=== PATIENT | female | born 1965 | race African-American/Black ===

== ENCOUNTER 2021-07-26 15:22 | Emergency (ER) | payer OTHER, SELFPAY ==
[2021-07-26 15:25] VITALS: BP 140/89; PULSE 110; RESP 18; TEMP 36.8; O2SAT 98
--- NOTE | 2021-07-26 16:18 | ED.GENADULT ---
HPI - General Adult General Chief complaint: Extremity Injury, Lower <Amy Arroyo PA-C - Last Filed: 07/26/21 18:23> Stated complaint: rt leg sore with bruising <Amy Arroyo PA-C - Last Filed: 07/26/21 18:23> Time Seen by Provider: 07/26/21 16:06 <PATRICIA Kerns Last Filed: 07/26/21 18:23> History of Present Illness HPI narrative: Patient is a 56-year-old female with a history of type 2 diabetes, hypertension who presents to the emergency department with 3 days of right lower extremity redness, swelling, and pain. Patient denies any acute injury to her right foot or acute tears in the skin, however she had some old chronic wounds that are in various stages of healing. Today she states that she began to feel feverish with some body aches which caused her for to present to the emergency department. He has not taken any medication for pain. She denies any recent long trips or travel, any hemoptysis, calf soreness, nausea, vomiting, headaches. <PATRICIA Kerns Last Filed: 07/26/21 18:23> Related Data Home medications: Home Medications Medication Instructions Recorded Confirmed amlodipine 07/26/21 aspirin 07/26/21 atorvastatin 07/26/21 hydrochlorothiazide 07/26/21 metformin mg 07/26/21 <PATRICIA Kerns Last Filed: 07/26/21 18:23> Allergies/adverse reactions: Allergies Allergy/AdvReac Type Severity Reaction Status Date / Time No Known Allergies Allergy Unverified 07/26/21 15:27 <PATRICIA Kerns Last Filed: 07/26/21 18:23> Review of Systems Review of Systems: Gen.: Denies fevers or chills Eyes: Denies eye pain or visual change ENT: Denies congestion Respiratory: Denies shortness of breath or cough CV: Denies chest pain or palpitations GI: Denies abdominal pain nausea, emesis or diarrhea denies burning, urgency, frequency or hematuria Musculoskeletal: Reports redness and pain to right lower extremity. Neuro: Denies numbness, tingling, weakness or focal weakness Skin: Reports redness to right lower extremity. Except as documented, all other systems reviewed and negative <Amy Arroyo PA-C - Last Filed: 07/26/21 18:23> All systems reviewed & are unremarkable except as noted in HPI and below <Amy Arroyo PA-C - Last Filed: 07/26/21 18:23> Exam Narrative: APPEARANCE: Well appearing, no pain in distress, well-nourished. Head normocephalic and atraumatic. EYES: PERRLA/EOMI, conjunctivae clear NOSE: No nasal drainage EARS: External ear normal in appearance THROAT: Oropharynx is clear. Mucous membranes are moist. NECK: Supple. No adenopathy, no masses. RESPIRATORY: Airway patent, respirations nonlabored. Clear to auscultation bilaterally, no rales, rhonchi, wheezing. CARDIOVASCULAR: Regular rate and rhythm without murmurs, rubs, or gallops. ABDOMINAL: Normoactive bowel sounds. Soft, nontender, nondistended. No rebound tenderness or guarding. MUSCULOSKELETAL: Patient has patchy erythema to right lower extremity underlying old wounds in various stages of healing. She has no calf tenderness or palpable cords. Homans' sign is negative. NEURO: Normal speech. No focal neurologic deficits. SKIN:: Skin is warm and dry. No rashes. PSYCHIATRIC: Normal affect/mood.. <Amy Arroyo PA-C - Last Filed: 07/26/21 18:23> Course MOLD STRIPPER/PA Physician Supervision Patient seen and evaluated by me. Patient presents emergency room secondary to redness and tenderness to the right lower extremity. Is just from the knee down towards the ankle region. She is a type II diabetic and her diabetes is well controlled with blood sugars running in the 120s normally. She denies any trauma or injuries. She got no history of DVTs. She has no calf tenderness. Presentation and physical examination is consistent with cellulitis. Patient will placed on a course of antibiotics. Told her to follow the
== END 2021-07-26 16:36 | disposition home or self-care (01) ==
LOC: ANHED 16:29
PROVIDERS: Emergency Provider Emergency Medicine
DX: L03.115 Cellulitis of right lower limb (principal)
CPT/HCPCS: 99283

== ENCOUNTER 2024-10-31 15:25 | Emergency (ER) | payer SELFPAY ==
--- NOTE | ~2024-10-31 | XR_ITS ---
XR knee LT min 4V Ordering provider: Michelle Carrington PA-C History: . knee pain . Comparison: None. FINDINGS: BONES: No acute fracture or dislocation. Ossification of the insertion of the medial collateral ligam ent in the femur. JOINT SPACES: Normal. Marginal osteophytes are seen in the patella. SOFT TISSUES: Normal. IMPRESSION: No acute osseous abnormality left knee. Reviewed, dictated and finalized at location A.
--- NOTE | ~2024-10-31 | US_ITS ---
EXAMINATION: US venous doppler [facility] DATE: 10/31/2024 17:18 INDICATION: Left lower limb pain and swelling TECHNIQUE: Grayscale ultrasound images without and with compression and Doppler ultrasound images of the left lower extremity veins were obtained. COMPARISON: None. FINDINGS: The visualized portions of left common femoral vein, profunda (deep) femoral vein, femoral vein, popl iteal vein, peroneal veins, posterior tibial veins, gastrocnemius vein, proximal to mid greater saphe nous vein outflow are patent. IMPRESSION: 1. No deep venous thrombosis in the left lower limb. Reviewed, dictated and finalized at location A.
[2024-10-31 15:26] VITALS: BP 142/68; PULSE 106; RESP 20; TEMP 36.6; O2SAT 91
--- OUTSIDE RECORDS SUMMARY | 2024-10-31 15:27 | XMS_ITS | Clinical Summary ---
Author Organization [facility] Address [address] [place] [address] Care Team Providers Care Packing Room Supervisor Name Role Phone Amanda Johns Gilda TRIANA-LANDSCAPING SPECIALIST Primary Care Provi angelique Source Comments [facility],non-owned Affiliates and Associated Physician Practices is amultiple site organization consisting of ambulatory clinics and hospital sitesin [place], [place], [place] and [place]. This disclosure is being madepursuant to the Care Everywhere program and may not contain all information available regarding this patient. Last updated 18.[facility] Allergies No known active allergies Medications * Be aware that medications may not be up to date on this document. Alwaysverify current medications with the patient. hydroCHLOROthiazi de (HYDRODIURIL) 25 MG tablet 1 7 Active amLODIPine (NORVASC) 10 MG tablet 3 7 Active naproxen (NAPROSYN) 500 MG tablet Take 500 mg by mouth 2 times daily 0 7 Active loratadine (CLARITIN) 10 MG tablet Take 10 mg by mouth 8 Active betamethasone dipropionate (DIPROSONE) 0.05 % ointmentIndicatio ns:Prurigo nodularis Apply to leg lesions twice daily. 30 days supply. 50 g 11 8 Active ammonium lactate (LAC-HYDRIN) 12 % lotionIndications :Lichen simplex chronicus,Prurigo nodularis Apply to thickened areas of feet/lower legs twice daily. 30 DS. 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 03/10/2017 Venous insufficiency (chronic) (peripheral) 08/23 Prurigo nodularis 09/07/2016 Family History Medical History Relation Name Comments Cancer Brother Status: d CVA Father Status: d Cancer Mother Status: d Asthma Neg Hx Cancer - Breast Neg Hx Cancer - Other Neg Hx Cancer - Skin, Melanoma Neg Hx Cancer - Skin, Non Melanoma Neg Hx Eczema Neg Hx Hemophilia Neg Hx Psoriasis Neg Hx Relation Name Status Comments Brother Father Mother Social History Tobacco Use Types Packs/Day Years Used Date Smoking Tobacco: Former Smokeless Tobacco: Never Alcohol Use Standard Drinks/Week Comments Yes 0 (1 standard drink = 0.6 oz pur e alcohol) every now and then Comments Unknown Sex and Gender Information Value Date Recorded Sex Assigned at Not on file Legal Sex Female 5:24 PM [employer] Gender Identity Not on file Sexual Orientation Not on file Plan of Treatment Health Maintenance Due Date Last Done Comments COLOGUARD (AGES 45-75) - COL ON CA SCREENING 1966 COLON MONITORING 1966 COLONOSCOPY - COLON CA SCREENING 1966 CT COLONOGRAPHY - COLON CA SCREENING 1966 Colorectal Cancer Screening 1966 FIT - COLON CA SCREENING 1966 FLEX SIG - COLON CA SCREENING 1966 LIPID TESTING 1966 MAMMOGRAM 1966 HIV SCREENING 1981 HEPATITIS C SCREENING 02/28/1984 DTAP/TDAP/TD VACCINES (1 - Tdap) 1985 HEPATITIS B VACCINE (1 of 3 - 19+ 3-dose series) 1985 PNEUMOCOCCAL VACCINE 50+ (1 of 1 - PCV) 2016 ZOSTER VACCINE (1 of 2) 2016 COVID-19 VACCINE ( - 2023-2 5 season) 2023 DEPRESSION SCREENING 04/25/2024 INFLUENZA VACCINE (Season Ended) 2024 HIB VACCINE Aged Out No longer eligi ble based on patient's age to complete this topic HPV VACCINE Aged Out No longer eligi ble based on patient's age to complete this topic MENINGOCOCCAL (Group B) VACC INE SHARED DECISION-MAKING Aged Out No longer eligibl e based on patient's age to complete this topic MENINGOCOCCAL GROUPS A/C/Y/W VACCINE Aged Out No longer eligible b ased on patient's age to complete this topic Insurance [employer] Care Teams Packing Room Supervisor Relationship Specialty Start Date End Date Amanda Johns, NUCLEAR SUPERVISING OPERATOR-LANDSCAPING SPECIALIST PCP - General 10/30/17
--- OUTSIDE RECORDS SUMMARY | 2024-10-31 15:27 | XMS_ITS | Data Portability ---
[facility] Address [address] [place] [address] Assessment Encounter Date Assessment Date Assessment LastModified by Organization Details LastModified Time 03/19/2024 03/19/2024 Today we discussed treatment options and etiology. Xrays of lindsay foot ordered today. Pt to begin stretching program as directed, icing, supportive shoes during all ambulation RTC for xray review Not available 03/19/2024 15:32:13 Plan of Treatment Reminders Order Date Submit Date Provider Last Modified By Organization Details Last Modified Time Details Appointments ANY 15 2024 03:00P M Janina Reagan MD Not available Not available Not available Lab HbA1c (hemoglob in A1c), blood 2024 025 In-Office Order, Internal Use Only DO Not Attach Compendium DO Not Attach Compendium, Do Not Delete/merge, [id number] 10/22/2024 10:13:41 HbA1c (hemoglob in A1c), blood 2024 025 In-Office Order, Internal Use Only DO Not Attach Compendium DO Not Attach Compendium, Do Not Delete/merge, [id number] 08/01/2024 17:58:17 Referral None recorded. Procedures None recorded. Surgeries None recorded. Imaging XR, knee, 3 view 2024 025 [facility] ([facility]), [address] [place], [id number], 10/15/2024 18:11:55 XR, foot 2023 024 [facility] ([facility]), [address] [place], [address], 03/19/2024 18:20:30 Medication Orders naproxen 500 mg tablet 2024 025 [facility], [address], [place], [id number], 10/25/2024 18:20:28 atorvasta tin 10 mg tablet 2024 025 [facility], [address] [place] [address], [id number], 09/20/2024 12:20:02 metformin 1,000 mg tablet 2024 025 [facility], [address] [place] [address], [id number], 09/20/2024 12:20:04 Lantus Solostar U-100 Insulin 100 unit/mL (3 mL) subcutane ous pen 2024 025 [facility], [address] [place] [address], [id number], 08/08/2024 09:59:33 amlodipin e 10 mg tablet 2024 025 [facility], [facility], [address] [place] [address], [id number], 09/20/2024 12:20:06 aspirin 81 mg tablet,de layed release 2024 025 [facility], [facility], [address] [place] [address], [id number], 09/20/2024 12:20:03 hydrochlo rothiazid e 25 mg tablet 2024 025 [facility], [address] [place] [address], [id number], 09/20/2024 12:20:01 albuterol sulfate HFA 90 mcg/actua tion aerosol inhaler 2024 025 [facility], [facility], [address] [facility] [address], [place], [place], [id number], 09/20/2024 12:20:05 Patient TargetsNo targets recorded. Patient Instructions Encounter Date Encounter Id Patient Instructions Last Modified By Organization Details Last Modified Time 03/19/2024 [id number] plantar fasciitis: care instructions Not available 03/19/2024 15:32:32 plantar fasciitis: exercises Not available 03/19/2024 15:32:32 plantar fasciiti s education Not available 03/19/2024 15:32:32 08/01/2024 [id number] dash diet: care instructions Not available 08/01/2024 16:41:22 How To Lower Blood Pressure Not available 08/01/2024 16:41:21 A healthy lifestyle: care instructions Not available 08/01/2024 17:58:17 10/10/2024 [id number] Learning About Being Physically Active Not available 10/10/2024 15:15:20 dash diet: care instructions Not available 10/10/2024 15:15:19 How To Lower Blood Pressure Not available 10/10/2024 15:15:20 type 2 diabetes: care instructions Not available 10/10/2024 15:15:20 Learning About Carbohydrate (Carb) Counting and Eating Out When You Have Diabetes Not available 10/10/2024 15:15:20 Reason for Referral None Reported. Results Created Date Observation Date Name Description Value Unit Range Abnormal Flag Note LastModifiedBy Organization Detail LastModifiedTime 08/02/1908/01/2024 HbA1c (hemo globi n A1c), blood HbA1c 12.6 Not Available In-Office Order Internal Use Only DO Not Attach Compendium DO Not Attach Compendium, Do Not Delete/merge, [id number] 08/01/2024 15:38:26 10/11/19 25 10/10/2024 HbA1c (hemo globi n A1c), blood HbA1C 11.2 % Not Available In-Office Order Internal Use Only DO Not Attach Compendium DO Not Attach Compendium, Do Not Delete/merge, [id number] 10/10/2024 14:43:34 03/19/20 24 03/19/2024 XR, foot No observ ation record ed. [email or web address] [facility] [address], [place], [address], 03/19/2024 18:20:31 10/12/19 25 10/10/2024 XR, knee, 3 view No observ ation record ed. [email or web address] [employer] [facility] [address], [place], [address], 10/15/2024 18:11:55 Result Notes None recorded. Problems Name Problem SNOMED Code Status Onset Date Resolution Date Notes Provider Name and Address Organization Details Recorded Time Hypertensive disorder 07977171 Active 2019 Alfreda Roberts [place] null, [place] [facility] 2 17:22:09 Diabetes mellitus 39417595 Active 2019 Alfreda Roberts [place], [place] [facility] 2 17:22:01 Eruption 385034229 Active 2021 Alfreda Roberts [place] [facility] 2 14:26:26 Vulvovaginitis 97484505 Active 2021 Alfreda Roberts [place], [place] [facility] 2 14:26:32 Obesity 056023938 Active 2021 Alfreda Roberts [place] [facility] 2 14:26:45 Upper respiratory infection 41867610 Active 2021 Alfreda [place] [facility] 2 16:23:53 Problem Notes None recorded. Procedures Surgical History Date Name Laterality Status Provider Name and Address Organization Details Recorded Time 10/09/19 Date of Last Mammogram completed Alfreda Roberts [place] - [facility] 08/25/2022 14:51:09 04/25/19 10 Date of Last Pap Smear completed Alfreda Roberts MA [place] [facility] 03/24/2022 16:24:06 04/25/19 10 Total hysterectomy completed JENN Moody Attn: Accounting,[address] [facility], [place], [address], [place] [facility] 02/09/2023 10:38:04 Tubal Ligation completed Alfreda Roberts [place] [facility] 03/24/2020 10:49:34 Imaging Results None recorded. Procedure Notes None recorded. Medical Equipment None Reported. Allergies No known drug allergies Medications Name Sig Start Date Stop Date Status Note LastModified by Organization Details LastModified Time methocarbam ol 500 mg tablet 05/14 completed Not Available Not Available Not Available promethazin e-DM 6.25 mg-15 mg/5 mL oral syrup TAKE 5 ML BY MOUTH EVERY 4 HOURS FOR 10 DAYS NEEDED 08/25 completed Not Available Not Available Not Available cetirizine 10 mg tablet 05/14 completed Not Available Not Available Not Available atorvastati n 10 mg tablet TAKE ONE TABLET BY MOUTH AT BEDTIME TO LOWER CHOLESTER OL active Not Available Not Available No t Available azithromyci n 250 mg tablet TAKE 2 TABLETS (500 MG) BY ORAL ROUTE ONCE DAILY FOR 1 DAY THEN 1 TABLET (250 MG) BY ORAL ROUTE ONCE DAILY FOR 4 DAYS 12/12 completed Not Available Not Available Not Available fluconazole 150 mg tablet TAKE 1 TABLET BY MOUTH EVERY 72 HOURS FOR 9 DAYS 08/25 completed Not Available Not Available Not Available benzonatate 200 mg capsule Take 1 capsule 3 times a day by oral route as needed for 10 days, for cough. 12/12 completed Not Available Not Available Not Available prednisone 20 mg tablet TAKE 2 TABLETS BY MOUTH EVERY DAY IN THE MORNING FOR 5 DAYS 09/30 completed Not Available Not Available Not Available clobetasol 0.05 % topical cream APPLY THIN LAYER TOPICALLY TO THE AFFECTED AREA TWICE DAILY 08/21 completed Not Available Not Available Not Available ciprofloxac in 500 mg tablet TAKE 1 TABLET BY MOUTH EVERY 12 HOURS FOR 10 DAYS 08/25 completed Not Available Not Available Not Available aspirin 81 mg tablet,joey yed release TAKE ONE TABLET BY MOUTH EVERY MORNING TO PREVENT STROKE active Not Available Not Available No t Available tramadol 50 mg tablet 05/14 completed Not Available Not Available Not Available acetaminoph en 500 mg tablet Take 2 tablet(s) every 6 hours by oral route with meals for 30 days. 12/12 completed Not Available Not Available Not Available triamcinolo ne acetonide 0.1 % topical cream APPLY A THIN LAYER TO THE AFFECTED AREA(S) BY TOPICAL ROUTE 2 TIMES PER DAY 05/14 completed Not Available Not Available Not Available amlodipine 10 mg tablet TAKE ONE TABLET BY MOUTH EVERY MORNING FOR BLOOD PRESSURE active Not Available Not Available No t Available benzonatate 100 mg capsule TK 1 C PO Q 8 H PRN 10/08 completed Not Available Not Available Not Available cephalexin 500 mg capsule TAKE 1 CAPSULE BY MOUTH EVERY 12 HOURS 09/30 completed Not Available Not Available Not Available metformin 1,000 mg tablet TAKE ONE TABLET BY MOUTH TWICE DAILY EVERY MORNING & EVENING WITH FOOD FOR DIABETES active Not Available Not Available No t Available nystatin 100,000 unit/gram topical cream APPLY TOPICALLY TO THE AFFECTED AREA TWICE DAILY 12/12 completed Not Available Not Available Not Available dexamethaso ne 4 mg tablet 05/14 completed Not Available Not Available Not Available Mapap (acetaminop hen) 325 mg tablet 05/14 completed Not Available Not Available Not Available codeine 10 mg-guaifene sin 100 mg/5 mL oral liquid Take 10 mL every 4-6 hours by oral route as directed for 7 days. 05/14 completed Not Available Not Available Not Available alcohol swabs APPLY 1 PAD TWICE DAILY 12/12 completed Not Available Not Available Not Available hydrochloro thiazide 25 mg tablet TAKE ONE TABLET BY MOUTH EVERY MORNING FOR BLOOD PRESSURE AND FLUID RETENTION active Not Available Not Available No t Available ergocalcife rol (vitamin D2) 1,250 mcg (50,000 unit) capsule 05/14 completed Not Available Not Available Not Available albuterol sulfate HFA 90 mcg/actuati on aerosol inhaler INHALE TWO PUFFS BY MOUTH EVERY 4 HOURS NEEDED active Not Available Not Available No t Available metformin ER 500 mg tablet,exte nded release 24 hr 10/09 completed Not Available Not Available Not Available naproxen 500 mg tablet TAKE ONE TABLET BY MOUTH TWICE DAILY EVERY MORNING & EVENING WITH FOOD active Not Available Not Available No t Available Artificial Tears (polyvinyl alcohol) 1.4 % eye drops Apply 1 drop 4 times a day by ophthalmi c route. 08/21 completed Not Available Not Available Not Available amoxicillin 875 mg-des marquez clavulanate 125 mg tablet 10/09 completed Not Available Not Available Not Available nitrofurant oin monohydrate /macrocryst als 100 mg capsule Take 1 capsule every 12 hours by oral route as directed for 7 days, for antibioti cs. 10/10 completed Not Available Not Available Not Available Januvia 100 mg tablet Take 1 tablet every day by oral route in the morning for 90 days. 08/25 completed Not Available Not Available Not Available Lantus Solostar U-100 Insulin 100 unit/mL (3 mL) subcutaneou s pen INJECT 20 UNITS UNDER THE SKIN EVERY EVENING FOR DIABETES active Not Available Not Available No t Available Contour Next Test Strips FOR TESTING 3 TIMES DAILY 2023 active Not Available Not Available Not Avai lable lancets 30 gauge 05/14 completed Not Available Not Available Not Available Flonase Allergy Relief 50 mcg/actuati on nasal spray,suspe nsion Spangler 1 spray every day by intranasa l route. 2023 active Not Available Not Available Not Avai lable Sure Comfort Pen Needle 32 gauge x 1/4 USE DIRECTED DAILY active Not Available Not Available No t Available Rybelsus 7 mg tablet Take by oral route for 90 days. 12/12 completed Not Available Not Available Not Available Rybelsus 3 mg tablet TAKE 1 TABLET BY MOUTH EVERY DAY IN THE MORNING 12/12 completed Not Available Not Available Not Available Vitals Date Recorded Body height Body temperature Body mass index (BMI) Body weight Heart rate Systolic And Diastolic Provider Name and Address Organization Details Last Updated DateTime 5 160.02 cm 98.6 [degF] 50.8 kg/m2 628357. 57 g 94 /min 172/82 mm[Hg] Chace Mata MA [place] - [facility] 5 14:51:07 Date Recorded Body height Oxygen saturation Oxygen saturation in Arterial blood by Pulse oximetry Heart rate Respiratory rate Body temperature Body mass index (BMI) Body weight Systolic And Diastolic Provider Name and Address Organization Details Last Updated DateTime 5 160.02 cm 98 % 98 % 95 /min 18 /min 97.6 [degF] 45 kg/m2 955835. 21 g 121/79 mm[Hg] Alfreda Roberts MA [facility] 5 15:30:51 Date Recorded Body height Body mass index (BMI) Body weight Oxygen saturation Oxygen saturation in Arterial blood by Pulse oximetry Heart rate Respiratory rate Body temperature Systolic And Diastolic Provider Name and Address Organization Details Last Updated DateTime 5 160.02 cm 45.9 kg/m2 195501. 12 g 98 % 98 % 101 /min 18 /min 97.7 [degF] 130/75 mm[Hg] Alfreda Roberts MA [facility] 5 14:39:39 Date Recorded Body height Body mass index (BMI) Body weight Heart rate Body temperature Systolic And Diastolic Provider Name and Address Organization Details Last Updated DateTime 4 160.02 cm 45.8 kg/m2 887126. 27 g 103 /min 98.7 [degF] 137/83 mm[Hg] Salinas Price MA [facility] 4 15:07:06 Social History Question Answer Notes LastModified by Organizat ion Details LastModified Time Tobacco Smoking Status Never Smoker Alfreda Roberts MA null, [facility] 08/25/2022 14:51:37 Do You Have An Advance Directive? No Information not available 07/08/2020 Are You Blind Or Do You Have Difficulty Seeing? Yes Information not available 07/08/2020 What Is Your Level Of Caffeine Consumption? Moderate Diet Coke Coffe Tea Information not available 07/08/2020 In The 14 Days Before Symptom Onset, Have You Had Close Contact With A Laboratory-confir med COVID-19 While That Case Was Ill? No Information not available 07/08/2020 In The 14 Days Before Symptom Onset, Have You Had Close Contact With A Person Who Is Under Investigation For COVID-19 While That Person Was Ill? No Information not available 07/08/2020 Have You Been To An Area Known To Be High Risk For COVID-19? No Information not available 07/08/2020 Are You Deaf Or Do You Have Serious Difficulty Hearing? No Information not available 07/08/2020 What Type Of Diet Are You Following? DIABETIC [email or web address] Information not available 11/08/2023 What Is The Highest Grade Or Level Of School You Have Completed Or The Highest Degree You Have Received? [id number] [email or web address] Information not available 11/09/2021 Are There Any Guns Present In Your Home? No Information not available 07/08/2020 Do You Have A Medical Power Of Animal Cop? No [email or web address] Information not available 01/04/2024 What Was The Date Of Your Most Recent Tobacco Screening? 10/10/2024 Information not available 10/10/2024 What Is Your Relationship Status? Information not available 07/08/2020 Do You Use Your Seat Belt Or Car Seat Routinely? Yes Information not available 07/08/2020 Are You Sexually Active? No Information not available 07/08/2020 Do You Have Smoke And Carbon Monoxide Detectors In Your Home? Yes Information not available 07/08/2020 Are You Passively Exposed To Smoke? No Information no t available 07/08/2020 Do You Use Sunscreen Routinely? No Information not available 07/08/2020 Has Tobacco Cessation Counseling Been Provided? No Information not available 10/08/2020 How Many Years Have You Smoked Tobacco? 0 Information not available 03/24/2020 Sex: Female Functional Status Question Answer Note LastModified by Organizat ion Details LastModified Time Do you use any illicit or recreational drugs? No Information not available 07/08/2020 Do you or have you ever used any other forms of tobacco or nicotine? No Information not available 10/08/2020 What is your level of alcohol consumption? Occasional Information not available 07/08/2020 Do you or have you ever used smokeless tobacco? Never used smokeless tobacco Information not available 10/10/2019 Are you currently employed? No Information not available 07/08/2020 Are you able to care for yourself? Yes Information not available 07/08/2020 Do you or have you ever used e-cigarettes or vape? Never used electronic cigarettes Information not available 10/10/2019 What is your exercise level? Occasional Information not available 07/08/2020 Mental Status Question Answer Note LastModified by Organization D etails LastModified Time Do you feel stressed (tense, restless, nervous, or anxious, or unable to sleep at night)? [id number] Information not available 07/08/2020 Family History Nothing Reported. Medical History Condition Response Coronary Artery Disease N Other N High Blood Pressure Y Atrial Fibrillation N Thyroid Problems N Kidney or Bladder Problems N GI Problems N Depression N COPD N Blood Clots N Have you had a mammogram in the last yea r? N Skin Problems N Eating Disorder N Anemia N Heart Attack ([place]) N Anxiety Disorder N Diabetes Y Muscle, Joint, or Bone Problems N Arthritis N Seizures/Epilepsy N Have you had a colonoscopy in the last 1 0 years? Y Acid Reflux (GERD) N Cancer N Stroke N Asthma N Allergies N Have you had a PSA blood test in the las t year? N ADHD N Substance Abuse N High Cholesterol N Hepatitis N Liver Disease N Schizophrenia N Headaches N Heart Failure N Osteoporosis N Gynecological History Statement/Question Response If Post Menopausal, Age at Menopause 51 Date of Last Mammogram 10/08/2021 Date of LMP 06/23/2009 On BCP's at Conception? N Menses Monthly N Date of Last Pap Smear 04/25/2009 Age at Menarche 14 Current Control Method Hysterectom y Age at First Child 19 LMP Approximate Obstetrics History GPAL:G 4 P 4 0 0 4 Type Value Multiple Births 0 Full Term 4 Induced 0 Spontaneous 0 Premature 0 Living 4 Ectopics 0 Total 4 Immunizations Vaccine Type Date Status Note Provider Nam e and Address Organization Details Recorded Time COVID-19, mRNA, LNP-S, bivalent, PF, 50 mcg/0.5 mL or 25mcg/0.25 mL dose 01/05/2022 completed Not Available [facility] 5 13:39:44 COVID-19, mRNA, LNP-S, PF, 100 mcg/0.5mL dose or 50 mcg/0.25mL dose 07/19/2020 completed Rosalba Montana RN [facility], [facility] 07/19/2020 11:13:33 COVID-19, mRNA, LNP-S, PF, 100 mcg/0.5mL dose or 50 mcg/0.25mL dose 08/16/2020 completed Claude Carmichael RN [facility], [facility] 08/16/2020 10:54:22 Past Encounters Encounter ID Performer Location Encounter Start Date Encounter Closed Date Diagnosis/Indication Diagnosis SNOMED-CT Code Diagnosis ICD10 Code Diagnosis Note [id number] Janina Reagan MD [address] [address] 02/22/2019 15:03:14 02/23/2019 09:29:14 Type 2 diabetes mellitus 78612043 E11.65 Pruritic rash 28531909 L 28.2 Adult heal th examination 691030512 Z00.00 Essential hypertension 12555183 I10 [id number] Juan Luis Torres MD [address] [address] 09/26/2019 17:22:24 09/27/2019 07:22:29 Essential hypertension 21725963 I10 Type 2 jhony betes mellitus 47766704 E11.9 Eczema 01383746 L30.9 [id number] Janina Reagan MD [address] [address] 10/10/2019 10:19:26 10/11/2019 07:03:13 Type 2 diabetes mellitus 67969962 E11.65 Essential hypertension 01487513 I10 [id number] Janina Reagan MD [address] [address] 03/24/2020 10:05:08 03/25/2020 07:03:17 Diabetes mellitus 93223851 E11.65 Essential hypertension 51172455 I10 COVID-19 061027454 U07.1 [id number] Janina Reagan MD [address] [address] 05/14/2020 09:36:36 05/15/2020 07:50:20 Type 2 diabetes mellitus 51666921 E11.65 last HgA1c was 7.9. taking meds as directed and educated again on diet control. follow up in office in 2 months Coronary arteriosclerosis 41496561 I25.10 Essential hypertension 28271225 I10 [id number] TYLER GOMES DPM [facility] [address] [place] [address] 06/18/2020 11:23:37 06/20/2020 09:54:51 Disorder of nervous system due to type 2 diabetes mellitus 319376569 E11.49 Xerosis du e to atopic dermatitis 246740762 L85.3 Onychomycosis 696241982 B35.1 [id number] Janina Reagan MD [address] [address] 07/08/2020 15:45:11 07/09/2020 18:41:50 Type 2 diabetes mellitus 45836979 E11.65 last HgA1c was 6.0 . taking meds as directed and educated again on diet control. follow up in office in 2 months Essential hypertension 54707158 I10 discussed low sodium diet and exercise with weight loss Screening for malignant neoplasm of colon 741472344 Z12.11 Obesity 970756585 E66.9 goal of 20 pound weight loss Adult heal th examination 339851694 Z00.00 Screening for malignant neoplasm of breast 585673986 Z12.39 [id number] Graham Ang MD [facility] ([facility]ult [facility] [address] [place] [address] 07/19/2020 10:49:50 07/25/2020 13:38:38 Administration of SARS-CoV-2 antigen vaccine 550507669 Z23 [id number] Lilian Paez MD [facility] [address] [place] [address] 07/30/2020 11:59:42 07/30/2020 16:48:56 Type 2 diabetes mellitus without complication 188510427 E11.9 Bilateral cataracts 9572 2003 H26.9 Tear film insufficiency of bilateral eyes 9867277731 51685 H04.856 [id number] TYLER GOMES DPM [facility] [address] [place] [address] 07/30/2020 12:00:02 07/31/2020 16:51:41 Diabetes mellitus 52574664 E11.49 Disorder o f nervous system due to type 2 diabetes mellitus 400627207 E11.49 Xerosis du e to atopic dermatitis 104444116 L85.3 Onychomycosis 957503528 B35.1 [id number] Graham Ang MD [facility] (Adult [facility]) [address] [place] [address] 08/16/2020 10:36:15 08/19/2020 11:24:23 Administration of SARS-CoV-2 antigen vaccine 105968179 Z23 [id number] Janina Reagan MD [address] [address] 10/08/2020 09:52:27 10/09/2020 10:26:15 Diabetes mellitus 03121421 E11.65 controlled - last HgA1c was 6.0-Contin ue current meds Essential hypertension 10766102 I10 discussed low sodium diet and exercise with weight loss Mild inter mittent asthma 629779778 J45.20 [id number] Janina Reagan MD [address] [address] 02/16/2021 10:00:14 02/19/2021 12:17:04 Obesity 685460277 E66.9 goal of 20 pound weight loss Type 2 jhony betes mellitus 97657762 E11.65 last HgA1c was 6.0 . taking meds as directed and educated again on diet control. follow up in office in 3 months Essential hypertension 49408064 I10 discussed low sodium diet and exercise with weight loss- has refills till next visit [id number] MARY JO DE SOUZA NP [address] [address] 08/21/2021 16:16:35 08/24/2021 08:25:17 Hypertensive disorder 01617104 I10 Hyperlipidemia 97625000 E78.5 Diabetes mellitus 503482 09 E11.9 [id number] Mariza Telles MD [address] [address] 09/10/2021 17:11:15 09/11/2021 12:16:49 Eruption 753562474 R21 Vulvovaginitis 74126876 N76.0 Acute bronchitis 5577791 2 J20.9 [id number] Janina Reagan MD [address] [address] 09/30/2021 13:37:32 10/01/2021 15:29:07 Type 2 diabetes mellitus 39245498 E11.65 - Uncontroll ed-poor compliance with diet and exercise Screening for malignant neoplasm of breast 184136540 Z12.39 Essential hypertension 03182940 I10 discussed low sodium diet and exercise with weight loss- has refills till next visit Obesity 332279341 E66.9 goal of 20 pound weight loss Candidiasis of vagina 72 781133 B37.3 Pap smear next vist [id number] Lilian Paez MD [facility] [address] [place] [address] 11/09/2021 14:54:54 11/10/2021 15:07:13 Presbyopia 49948175 H52.4 Type 2 jhony betes mellitus without complication 778097813 E11.9 Dry eyes 998293977 H04.1 23 [id number] Mariza Telles MD [address] [address] 02/04/2022 17:58:14 02/05/2022 07:28:00 Upper respiratory infection 88309304 J06.9 [id number] Janina Reagan MD [address] [address] 03/24/2022 16:07:05 03/25/2022 13:27:51 Type 2 diabetes mellitus 41438216 E11.65 - Uncontroll ed-poor compliance with diet and exercise-e nroll in DEXCOM-HgA 1c is 11.0 today, has improved for 14.1 on last visit PAP SMEAR NEXT VISIT Essential hypertension 17723099 I10 discussed low sodium diet and exercise with weight loss- has refills till next visit Obesity 047587242 E66.9 goal of 20 pound weight loss Hypertensive disorder 38 839120 I10 [id number] Janina Reagan MD [address] [address] 08/25/2022 14:14:39 08/26/2022 13:58:16 Type 2 diabetes mellitus [id number] E11.65 - Uncontroll ed-poor compliance with diet and exercise-e nroll in DEXCOM-HgA 1c is 11.0 today, has improved for 14.1 on last visit-will add Rybelsus and stop Januvia, for improved control and weight loss-alcoh ol pads ordered and given Contour next-EZ meter and supplies. decided to stop Dexcom Obesity [id number] Z68.42 goal of 20 pound weight loss Morbid obesity 067915334 E66.01 Essential hypertension 36134832 I10 discussed low sodium diet and exercise with weight loss- has refills till next visit Hypertensive disorder 38 618705 I10 Mild inter mittent asthma 498221220 J45.20 [id number] Juan Luis Torres MD [place] [address] 3 12/13/2022 17:57:06 12/18/2022 14:42:29 [id number] Janina Reagan MD [place] [address] 3 03/15/2023 14:18:44 03/16/2023 08:47:14 Morbid obesity 694125334 E66.01 Type 2 jhony betes mellitus 54818481 E11.65 - Uncontroll ed-poor compliance with diet and exercise-e nroll in DEXCOM-HgA 1c is 11.0 today, has not improved despite education- Rybelsus added and to metformin, for improved control and weight loss ,patient has delcined any insulin-al cohol pads ordered and given Contour next-EZ meter and supplies. decided to stop Dexcom Essential hypertension 31679015 I10 discussed low sodium diet and exercise with weight loss-contr olled Mild inter mittent asthma 017981070 J45.20 Influenza vaccination declined 023429544 Z28.21 [id number] EILEEN ORTIZ MD [facility] [address] [place], [place] [address] 11/08/2023 13:06:36 11/09/2023 08:19:59 Morbid obesity 954909546 E66.01 Cough 75342596 R05.9 Type 2 jhony betes mellitus 57084064 E11.9 Acute uppe r respiratory infection 82667112 J06.9 [id number] Janina Reagan MD [address] [address] 12/13/2023 13:30:25 12/15/2023 08:37:38 Morbid obesity 656714983 E66.01 Mild inter mittent asthma 849083897 J45.20 Essential hypertension 09423172 I10 discussed low sodium diet and exercise with weight loss-contr olled Type 2 jhony betes mellitus 86023409 E11.65 - Uncontroll ed-poor compliance with diet and exercise-e nroll in DEXCOM-HgA 1c is 11.0 today, has not improved despite education- Rybelsus added and to metformin, for improved control and weight loss ,patient has delcined any insulin-al cohol pads ordered and given Contour next-EZ meter and supplies. decided to stop Dexcom [id number] EILEEN ORTIZ MD [address] [address] 12/13/2023 15:23:56 12/14/2023 15:34:39 Essential hypertension 85449360 I10 [id number] EILEEN ORTIZ MD [address] [address] 12/17/2023 11:58:44 12/19/2023 10:00:09 Essential hypertension 70625648 I10 [id number] Lilian Paez MD [facility] [address] [place] [address] 01/04/2024 13:48:05 01/05/2024 09:24:19 Type 2 diabetes mellitus without complication 636686203 E11.9 [id number] Nathan Hardy [facility] [address] [place] [address] 03/19/2024 14:54:06 03/20/2024 10:33:08 Plantar fasciitis 367493591 M72.2 Pain in right foot 77302 79800 51965 M79.671 Pain in left foot 406287 2607 00288 M79.208 [id number] Nathan Hardy [facility] [address] [place] [address] 05/02/2024 14:35:42 05/03/2024 10:29:37 Plantar fasciitis 267267344 M72.2 Recommende d that she continue with supportive shoes during all ambulation if the pain returns she is to go back to stretching , icing and call the clinic to schedule an appointmen t. Otherwise she may return to clinic p.r.n. [id number] Janina Reagan MD [address] [address] 08/01/2024 14:51:40 08/02/2024 08:56:02 Type 2 diabetes mellitus 54373503 E11.65 - Uncontroll ed-poor compliance with diet and exercise-e nroll in DEXCOM-HgA 1c is 11.0 today, has not improved despite education- Rybelsus added and to metformin, for improved control and weight loss ,patient has delcined any insulin-al cohol pads ordered and given Contour next-EZ meter and supplies. decided to stop Dexcom- return in 1 month Morbid obesity 804228196 E66.01 Essential hypertension 50121096 I10 discussed low sodium diet and exercise with weight loss-contr olled Mild inter mittent asthma 986746601 J45.20 [id number] Janina Reagan MD [address] [address] 10/10/2024 13:36:30 10/12/2024 09:02:48 Insulin treated type 2 diabetes mellitus 472101249 E11.69 Z79.4 - Uncontroll ed educated again on taking medication as directed-p oor compliance with diet and exercise-e nroll in DEXCOM-HgA 1c is 11.2 today, has not improved despite education- on Insulin lantus 20 units nightly-al cohol pads ordered and given Contour next-EZ meter and supplies. decided to stop Dexcom- return in 1 month Obesity 799174306 Z68.42 goal of 20 pound weight loss Essential hypertension 60779202 I10 discussed low sodium diet and exercise with weight loss-contr olled Pain of le ft knee joint 0762514854 08174 M25.562 Health Concerns Section Related Observation LastModified by Organization Detai ls LastModified Time None Recorded Concern Status LastModified by Organization Details LastModified Time None Recorded Advance Directives Directive N: Payers Insurance Date Sequence Insurance Name Policy Number Policy [place] Covered Member ID [place] Member ID Guarantor Name 08/01/2024 1 [facility] PRIOR TO 10/23/2020 (MEDICAID REPLACEMENT - HMO) Ashlie Velasquez [id number] Ashlie Velasquez 09/26/2019 1 *SELF PAY* Laurita Velasquez 08/01/2024 1 [facility] PRIOR TO 10/23/2020 (MEDICAID REPLACEMENT - HMO) Ashlie Velasquez [id number] Ashlie Velasquez 12/13/2023 SLIDING FEE SCHEDULE - DISCOUNT Ashlie Velasquez 03/15/2023 1 *SELF PAY* Laurita Velasquez 08/01/2024 SLIDING FEE SCHEDULE - DISCOUNT Ashlie Velasquez 08/01/2024 1 [facility] ON OR AFTER 10/23/20 (MEDICAID REPLACEMENT - HMO) Ashlie Velasquez [id number] Ashlie Velasquez Notes Date Note Type Note Provider Name and Address Organization Details Recorded Time 03/19/2024 text/html Patient presents to clinic for pain to the bottom of both feet near the heel. She states has been more of her several months and does not seem to be changing much. Pain is worse with 1st step out of bed in the morning and after periods of inactivity. She relates a sharp shooting pain in the bottom of both heels. Nathan Hardy DPM [address] [place], [address], [facility] 03/19/2024 15:45:34 05/02/2024 text/html Patient returns to clinic for follow-up of bilateral foot pain. She has been having no pain at this time. She got a new pair of supportive shoes and has been wearing these daily. Nathan Hardy DPEj [address] [place], [address], [facility] 05/02/2024 15:13:15 08/01/2024 text/html patient is a 59 year old female presented to office for annual exam, she has known obesity, diabetes, hypertension and degenerative joing disease Janina Reagan MD Attn: [address] [place], [address], [facility] 08/06/2024 18:21:13 10/10/2024 text/html patient is a 59 year old female with known diabetes, and HTN and is taking medication as directed. however, she continues to struggle with diet and exercise. she also hs increased left knee pain with walking and activity. no recent fall or injury . Pain is dull in nature and non radiating Janina Reagan MD Attn: [address] [facility], [place], [address], [place] [facility] 10/10/2024 15:17:41 OBGyn Episode No OBEpisode recorded.
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
--- OUTSIDE RECORDS SUMMARY | 2024-10-31 18:24 | XMS_ITS | Clinical Summary ---
Author Organization [facility] Address [address] [place] [address] Care Team Providers Care Telecommunications Analyst Name Role Phone Amanda Johns Gilda TRIANA-CONGREGATIONAL CARE PASTOR Primary Care Provi angelique Source Comments [facility],non-owned Affiliates and Associated Physician Practices is amultiple site organization consisting of ambulatory clinics and hospital sitesin [place], [place], [place] and [place]. This disclosure is being madepursuant to the Care Everywhere program and may not contain all information available regarding this patient. 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
--- NOTE | 2024-10-31 18:31 | PC.NURSE ---
MALLORIE bandage and knee immobilizer placed on left knee. Patient offered crutches and refused at this time.
== END 2024-10-31 18:33 | disposition home or self-care (01) ==
LOC: ANHED 18:22
PROVIDERS: Emergency Provider Physician Assistant
DX: M25.562 Pain in left knee (principal)
CPT/HCPCS: 73564; 93971; 99284